=== PATIENT | male | born 1980 | race Caucasian/White ===

== ENCOUNTER 2022-12-19 19:26 | Observation (INO) | payer OTHER ==
[2022-12-19 20:33] LABS: #Basophils 0.1 thou/uL (0.0-0.2); #Eosinphils 0.1 thou/uL (0.0-0.7); #Monocytes 0.5 thou/uL (0.11-0.59); #Neutrophils 6.2 thou/uL (1.40-6.50); %Basophils 0.7 % (0.0-1.0); %Eosinophils 1.5 % (0.0-10.0); %Lymphocytes 23.5 % (21.0-51.0); %Monocytes 5.5 % (0.0-10.0); %Neutrophils 68.7 % (42.0-75.0); Hematocrit 42.2 % (42.0-52.0); Hemoglobin 15.2 g/dL (14.0-18.0); Mean Corpuscular Hemoglobin 32.1 pg (27.0-31.0); Mean Corpuscular Volume 89.2 fl (78.0-98.0); Mean Platelet Volume 10.4 fL (7.4-10.4); Platelet Count 228 10x3/uL (130-400); RBC Distribution Width 12.5 % (11.5-14.5); Red Blood Cell (RBC) Count 4.73 mill/uL (4.70-6.10); White Blood Cell (WBC) Count 9.1 10x3/uL (4.8-10.8)
[2022-12-19] MEDS ORDERED: Aspirin Chewable 81 MG TAB ONE (20:52)
[2022-12-19] MEDS ORDERED: Nitroglycerin 0.4 MG TAB 1 EACH ONE (20:52)
[2022-12-19 20:59] LABS: ALT (SGPT) 40 U/L (8-55); AST (SGOT) 26 U/L (5-34); Albumin 4.1 g/dL (3.5-5.0); Alkaline Phosphatase 39 U/L (40-110); Anion Gap 13 mmol/L (10-20); BUN (Urea Nitrogen) 13 mg/dL (8.9-20.6); Calc. Creatinine Clearance 0 mL/min (70-130); Calcium 9.5 mg/dL (7.8-10.44); Carbon Dioxide 24 mmol/L (22-29); Chloride 102 mmol/L (98-107); Estimated GFR 108; Globulin 2.8 g/dL (2.4-3.5); Glucose 154 mg/dL (70-105); Potassium 3.3 mmol/L (3.5-5.1); Protein, Total 6.9 g/dL (6.0-8.3); Sodium 136 mmol/L (136-145)
[2022-12-19 21:01] LABS: Troponin I Less than 0.010 ng/mL (< 0.028)
[2022-12-19] MEDS ORDERED: Acetaminophen 325 MG TAB PO PRN (21:31)
[2022-12-19] MEDS ORDERED: Senokot S 8.6-50 MG TAB PO PRN (21:31)
[2022-12-19] MEDS ORDERED: Ondansetron ODT 4 MG TAB PO PRN (21:31)
[2022-12-19] MEDS ORDERED: Lisinopril 10 MG TAB PO SCH (21:45)
[2022-12-19 21:59] LABS: Troponin I Less than 0.010 ng/mL (< 0.028)
[2022-12-19 22:07] LABS: Hemoglobin A1c 5.8 % (4.0-6.0)
[2022-12-19] MEDS ORDERED: Electrolyte Replacement Protocol 1 EACH FS PRN (23:08)
[2022-12-19] MEDS ORDERED: Potassium Chloride 20 MEQ TAB PO SCH (23:15)
[2022-12-19 23:47] VITALS: BMI 52.9
[2022-12-20 01:36] LABS: Troponin I Less than 0.010 ng/mL (< 0.028)
[2022-12-20] MEDS ORDERED: metFORMIN 500 MG TAB PO SCH ×2 (07:30→08:00)
[2022-12-20] MEDS ORDERED: glyBURIDE 5 MG TAB PO SCH (07:30)
[2022-12-20 08:05] LABS: #Basophils 0.1 thou/uL (0.0-0.2); #Eosinphils 0.2 thou/uL (0.0-0.7); #Monocytes 0.5 thou/uL (0.11-0.59); #Neutrophils 3.4 thou/uL (1.40-6.50); %Basophils 0.8 % (0.0-1.0); %Eosinophils 2.8 % (0.0-10.0); %Lymphocytes 32.2 % (21.0-51.0); %Monocytes 8.3 % (0.0-10.0); %Neutrophils 55.6 % (42.0-75.0); Hematocrit 44.2 % (42.0-52.0); Mean Corpuscular HGB CONC 33.9 g/dL (32.0-36.0); Mean Corpuscular Hemoglobin 31.8 pg (27.0-31.0); Mean Platelet Volume 10.7 fL (7.4-10.4); Platelet Count 213 10x3/uL (130-400); RBC Distribution Width 12.6 % (11.5-14.5); Red Blood Cell (RBC) Count 4.71 mill/uL (4.70-6.10); White Blood Cell (WBC) Count 6.2 10x3/uL (4.8-10.8)
[2022-12-20 08:09] LABS: Mean Corpuscular Volume 93.8 fl (78.0-98.0)
[2022-12-20 08:26] LABS: Anion Gap 13 mmol/L (10-20); BUN (Urea Nitrogen) 15 mg/dL (8.9-20.6); Calc. Creatinine Clearance 280 mL/min (70-130); Calcium 9.2 mg/dL (7.8-10.44); Carbon Dioxide 22 mmol/L (22-29); Chloride 105 mmol/L (98-107); Cholesterol 104 mg/dl (< 200 Desired); Estimated GFR 108; Glucose 145 mg/dL (70-105); HDL Cholesterol 35 mg/dL (>60 Neg Risk); LDL Cholesterol, Calculated 57 mg/dL; Potassium 3.7 mmol/L (3.5-5.1); Sodium 136 mmol/L (136-145); Triglycerides 60 mg/dL (Less than 150)
[2022-12-20] MEDS ORDERED: Amlodipine 10 MG TAB PO SCH (09:00)
[2022-12-20] MEDS ORDERED: Atorvastatin Calcium 10 MG TAB PO SCH (09:00)
[2022-12-20] MEDS ORDERED: Lisinopril/Hydrochlorothiazide 10 mg/12.5 mg Tablet PO SCH (09:00)
[2022-12-20] MEDS ORDERED: Losartan/Hydrochlorothiazide 100 mg/25 mg Tablet PO SCH (09:00)
[2022-12-20] MEDS ORDERED: Famotidine 20 MG TAB PO SCH (09:00)
[2022-12-20] MEDS ORDERED: Aspirin Chewable 81 MG TAB PO SCH (09:00)
[2022-12-20 11:53] VITALS: BP 147/81; TEMP 97.8
[2022-12-20] MEDS ORDERED: Atorvastatin Calcium 40 MG TAB PO SCH (21:00)
== END 2022-12-20 14:08 | disposition home or self-care (01) ==
LOC: ERS 19:26 → 2SW 21:31
PROVIDERS: ADMIT Student in an Organized Health Care Education/Training Program; ATTEND Internal Medicine
DX: R07.9 Chest pain, unspecified (principal); E11.9 Type 2 diabetes mellitus without complications; I10 Essential (primary) hypertension; E66.01 Morbid (severe) obesity due to excess calories; Z68.43 Body mass index [BMI] 50.0-59.9, adult; Z79.82 Long term (current) use of aspirin; Z79.84 Long term (current) use of oral hypoglycemic drugs; Z79.899 Other long term (current) drug therapy; Z88.1 Allergy status to other antibiotic agents; Z88.0 Allergy status to penicillin
CPT/HCPCS: 36415; 71045; 80048; 80053; 80061; 83036; 83880; 84484; 85025; 93005; G0378